=== PATIENT | female | born 1985 | race Caucasian/White ===

== ENCOUNTER 2022-02-21 10:08 | Day surgery (SDC) | payer OTHER ==
[~2022-02-21] VITALS: Ht 165.1 cm; Wt 72.6 kg
[2022-02-21] MEDS ORDERED: diphenhydrAMINE 50 MG/ML VIAL ONE (10:42)
[2022-02-21] MEDS ORDERED: LIDOCAINE 2% 100 MG/5 ML UJET TP ONE (10:42)
[2022-02-21] MEDS ORDERED: MIDAZOLAM 5 MG/5 ML VIAL ONE (10:42)
[2022-02-21] MEDS ORDERED: fentaNYL citrate 0.05 MG/ML VIAL ONE (10:42)
[2022-02-21] MEDS ORDERED: MIDAZOLAM 2 MG/2 ML VIAL IVP ONE (11:40)
[2022-02-21] MEDS ORDERED: fentaNYL citrate 0.05 MG/ML VIAL IVP ONE (11:40)
== END 2022-02-21 12:10 | disposition home or self-care (01) ==
LOC: MDS 10:08 → MMU 10:09 → MDS 12:10
PROVIDERS: ATTEND Internal Medicine Gastroenterology
DX: K62.5 Hemorrhage of anus and rectum (principal); Z20.822 Contact with and (suspected) exposure to COVID-19
CPT/HCPCS: 45378; 87426; J2250; J3010; J1200